=== PATIENT | female | born 2000 | race Caucasian/White ===

== ENCOUNTER 2020-03-30 23:08 | Emergency (ER) | payer MEDICAID, OTHER ==
[2020-03-30] MEDS ORDERED: LIDOCAINE 1% MPF 5 ML VIAL ONE ×2 (23:43)
--- NOTE | 2020-03-30 23:54 | ER ---
Nurse's Notes [facility] Name: Rand Clifton Age: 19 yrs Sex: Female : 2000 Arrival Date: 03/30/2020 Time: 23:11 Bed 14 Private MD: Diagnosis: Laceration without foreign body of right index finger without damage to nail Presentation: 03/30 23:19 Chief complaint: Patient states: cut her right index finger with sample box maker yesterday iw morning around 5 or 6 am. Coronavirus screen: At this time, the client does not indicate any symptoms associated with coronavirus-19. Ebola Screen: Patient negative for fever greater than or equal to 101.5 degrees Fahrenheit, and additional compatible Ebola Virus Disease symptoms Patient denies exposure to infectious person. Patient denies travel to an Ebola-affected area in the 21 days before illness onset. No symptoms or risks identified at this time. Initial Sepsis Screen: Does the patient meet any 2 criteria? No. Patient's initial sepsis screen is negative. Does the patient have a suspected source of infection? No. Patient's initial sepsis screen is negative. Risk Assessment: Do you want to hurt yourself or someone else? Patient reports no desire to harm self or others. Onset of symptoms was March 29, 2020. 23:19 Method Of Arrival: Ambulatory iw 23:19 Acuity: SERGEI 4 iw Historical: - Allergies: 23:22 No Known Allergies; iw - PMHx: 23:22 Bipolar disorder; Depression; Anxiety; Schizophrenia; iw - PSHx: 23:22 ; iw - Immunization history:: Adult Immunizations Last tetanus immunization: < 5 years ago. - Social history:: Smoking status: Patient reports the use of cigarette tobacco products, denies chronic smoking, but will smoke occasionally, Smoking status: . Screenin:21 Abuse screen: Denies threats or abuse. Denies injuries from another. Nutritional mg2 screening: No deficits noted. Tuberculosis screening: No symptoms or risk factors identified. Fall Risk None identified. Assessment: 23:19 General: Appears in no apparent distress. comfortable, Behavior is calm, cooperative. mg2 Pain: Complains of pain in right hand. Neuro: Level of Consciousness is awake, alert, obeys commands, Oriented to person, place, time, situation. Cardiovascular: Capillary refill < 3 seconds Patient's skin is warm and dry. Respiratory: Airway is patent Respiratory effort is even, unlabored, Respiratory pattern is regular, symmetrical. GI: No signs and/or symptoms were reported involving the gastrointestinal system. : No signs and/or symptoms were reported regarding the genitourinary system. EENT: No deficits noted. Derm: Wound noted right index finger Wound is open, measures approx 1.5 inch long. Musculoskeletal: Circulation, motion, and sensation intact. Capillary refill < 3 seconds. Vital Signs: 23:19 Temp 99(O); mg2 23:19 BP 122 / 80; Pulse 97; Resp 16; Pulse Ox 100% on R/A; Weight 81.65 kg; Height 5 ft. 1 iw in. (154.94 cm); Pain 8/10; 03/31 00:04 BP 112 / 80; Pulse 89; Resp 18; Temp 98; Pulse Ox 100% on R/A; mg2 03/30 23:19 Body Mass Index 34.01 (81.65 kg, 154.94 cm) iw ED Course: 03/30 23:11 Patient arrived in ED. am2 23:19 Juan Murrieta, RN is Primary Nurse. mg2 23:20 Triage completed. iw 23:21 Patient has correct armband on for positive identification. mg2 23:26 Jamal Fung MD is Attending Physician. snw 23:26 Glenna Prescott FNP-C is PHCP. snw 03/31 00:03 Assist provider with laceration repair on palmar aspect of middle phalanx of right mg2 index finger that was 2.5 cm. or less using sutures. Set up tray. Performed by Glenna VANEGAS Dressed with 4X4s, Neosporin, Patient tolerated well. 2 stitches smade under local anesthesia. Patient did not have IV access during this emergency room visit. 00:05 Arm band placed on. mg2 Administered Medications: 03/30 23:45 Drug: Lidocaine (1 %) 1 amp {Note: administered by the provider.} Volume: 5 ml; Route: mg2 Infiltration; 03/31 00:03 Drug: Doxycycline 100 mg Route: PO; mg2 00:03 Follow up: Response: No adverse reaction; Medication administered at discharge. mg2 Outcome: 03/30 23:54 Discharge ordered by . snw 03/31 00:04 Discharged to home ambulatory. mg2 Condition: stable Discharge instructions given to patient, Instructed on discharge instructions, follow up and referral plans. medication usage, wound care, Demonstrated understanding of instructions, follow-up care, medications, wound care, Prescriptions given X 2. 00:05 Patient left the ED. mg2 Signatures: Glenan Prescott, CRAFT WORKER-C CRAFT WORKER-Csnw Taylor Smith, RN RN Valery Lorenz am Juan Murrieta RN RN mg2
--- NOTE | 2020-03-30 23:54 | EDPHYS ---
Physician Documentation [facility] Name: Rand Clifton Age: 19 yrs Sex: Female : 2000 Arrival Date: 03/30/2020 Time: 23:11 Bed 14 Private MD: ED Physician Jamal Fung HPI: 03/30 23:20 This 19 yrs old Female presents to ER via Unassigned with complaints of snw Finger Injury. 23:20 The patient or guardian reports a laceration, dirty, 3 cm(s), laceration occurred more snw than 12 hours ago. The complaints affect the palmar aspect of middle phalanx of right index finger. 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 Onset: The symptoms/episode began/occurred yesterday. Modifying factors: The symptoms are alleviated by nothing. Severity of symptoms: At their worst the symptoms were moderate. The patient has experienced similar episodes in the past. The patient has not recently seen a physician. denies intentional injury, tetanus vaccine up to date. Historical: - Allergies: 23:22 No Known Allergies; iw - PMHx: 23:22 Bipolar disorder; Depression; Anxiety; Schizophrenia; iw - PSHx: 23:22 ; iw - Immunization history:: Adult Immunizations Last tetanus immunization: < 5 years ago. - Social history:: Smoking status: Patient reports the use of cigarette tobacco products, denies chronic smoking, but will smoke occasionally, Smoking status: . ROS: 23:17 Constitutional: Negative for fever, chills, and weight loss, Eyes: Negative for injury, snw pain, redness, and discharge, ENT: Negative for injury, pain, and discharge, Neck: Negative for injury, pain, and swelling, Cardiovascular: Negative for chest pain, palpitations, and edema, Respiratory: Negative for shortness of breath, cough, wheezing, and pleuritic chest pain, Abdomen/GI: Negative for abdominal pain, nausea, vomiting, diarrhea, and constipation, Back: Negative for injury and pain, : Negative for injury, bleeding, discharge, and swelling, MS/Extremity: Negative for injury and deformity, Neuro: Negative for headache, weakness, numbness, tingling, and seizure, Psych: Negative for depression, anxiety, suicide ideation, homicidal ideation, and hallucinations. 23:17 Skin: Positive for laceration(s), of the right index finger . Exam: 23:17 Constitutional: This is a well developed, well nourished patient who is awake, alert, snw and in no acute distress. Head/Face: Normocephalic, atraumatic. Eyes: Pupils equal round and reactive to light, extra-ocular motions intact. Lids and lashes normal. Conjunctiva and sclera are non-icteric and not injected. Cornea within normal limits. Periorbital areas with no swelling, redness, or edema. ENT: Nares patent. No nasal discharge, no septal abnormalities noted. Tympanic membranes are normal and external auditory canals are clear. Oropharynx with no redness, swelling, or masses, exudates, or evidence of obstruction, uvula midline. Mucous membranes moist. Neck: Trachea midline, no thyromegaly or masses palpated, and no cervical lymphadenopathy. Supple, full range of motion without nuchal rigidity, or vertebral point tenderness. No Meningismus. Chest/axilla: Normal chest wall appearance and motion. Nontender with no deformity. No lesions are appreciated. Cardiovascular: Regular rate and rhythm with a normal S1 and S2. No gallops, murmurs, or rubs. Normal PMI, no JVD. No pulse deficits. Respiratory: Lungs have equal breath sounds bilaterally, clear to auscultation and percussion. No rales, rhonchi or wheezes noted. No increased work of breathing, no retractions or nasal flaring. Abdomen/GI: Soft, non-tender, with normal bowel sounds. No distension or tympany. No guarding or rebound. No evidence of tenderness throughout. Back: No spinal tenderness. No costovertebral tenderness. Full range of motion. MS/ Extremity: Pulses equal, no cyanosis. Neurovascular intact. Full, normal range of motion. Neuro: Awake and alert, GCS 15, oriented to person, place, time, and situation. Cranial nerves II-XII grossly intact. Motor strength 5/5 in all extremities. Sensory grossly intact. Cerebellar exam normal. Normal gait. Psych: Awake, alert, with orientation to person, place and time. Behavior, mood, and affect are within normal limits. 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 Vital Signs: 23:19 Temp 99(O); mg2 23:19 BP 122 / 80; Pulse 97; Resp 16; Pulse Ox 100% on R/A; Weight 81.65 kg; Height 5 ft. 1 iw in. (154.94 cm); Pain 8/10; 03/31 00:04 BP 112 / 80; Pulse 89; Resp 18; Temp 98; Pulse Ox 100% on R/A; mg2 03/30 23:19 Body Mass Index 34.01 (81.65 kg, 154.94 cm) iw Laceration: 03/30 23:22 Wound Repair of 4cm ( 1.6in ) subcutaneous laceration to palmar aspect of middle snw phalanx of right index finger. Linear shaped.. Moderate contamination.. extended time prior to coming in for repair. Distal neuro/vascular/tendon intact. Anesthesia: Local anesthetic administered with 5 mls of 1% lidocaine. Wound prep: Extensive cleansing with betadine with hibiclenz by nurse. Skin closed with 2 4-0 Prolene using simple sutures and sterile technique. Dressed with non-adherent dressing. Patient tolerated well. MDM: 23:23 Data reviewed: vital signs, nurses notes. Data interpreted: Pulse oximetry: on room air snw is 100 %. Interpretation: normal. Counseling: I had a detailed discussion with the patient and/or guardian regarding: the historical points, exam findings, and any diagnostic results supporting the discharge/admit diagnosis, the need for outpatient follow up, to return to the emergency department if symptoms worsen or persist or if there are any questions or concerns that arise at home. Special discussion: Based on the history and exam findings, there is no indication for further emergent testing or inpatient evaluation. I discussed with the patient/guardian the need to see the primary care provider for further evaluation of the symptoms. 23:26 Patient medically screened. snw Administered Medications: 23:45 Drug: Lidocaine (1 %) 1 amp {Note: administered by the provider.} Volume: 5 ml; Route: mg2 Infiltration; 03/31 00:03 Drug: Doxycycline 100 mg Route: PO; mg2 00:03 Follow up: Response: No adverse reaction; Medication administered at discharge. mg2 Disposition: 06:44 Co-signature as Attending Physician, Jamal Fung MD. mh7 Disposition: 03/30/20 23:54 Discharged to Home. Impression: Laceration without foreign body of right index finger without damage to nail. - Condition is Stable. - Discharge Instructions: Delayed Wound Closure, Laceration Care, Adult, Stitches, [place], or Adhesive Wound Closure, Wound Infection, Wound Care. - Prescriptions for Mobic 7.5 mg Oral Tablet - take 1 tablet by ORAL route once daily take with food; 20 tablet. Doxycycline Hyclate 100 mg Oral Tablet - take 1 tablet by ORAL route every 12 hours; 20 tablet. - Medication Reconciliation Form, Thank You Letter, Antibiotic Education, Prescription Opioid Use form. - Follow up: Emergency Department; When: As needed; Reason: Worsening of condition. Follow up: Private Physician; When: 7 - 10 days; Reason: Recheck today's complaints, Continuance of care, Staple/Suture removal, Re-evaluation by your physician. Signatures: Glenna Prescott, TITLE INVESTIGATOR-C TITLE INVESTIGATOR-Csnw Taylor Smith RN RN iw Juan Murrieta RN RN mg2 Jamal Fung MD MD 7 Corrections: (The following items were deleted from the chart) 03/30 23:53 23:22 Wound Repair of 4cm ( 1.6in ) subcutaneous laceration to palmar aspect of middle snw phalanx of right index finger. Linear shaped.. Moderate contamination.. extended time prior to coming in for repair. Distal neuro/vascular/tendon intact. Anesthesia: Local anesthetic administered with 5 mls of 1% lidocaine. Wound prep: Extensive cleansing with betadine with hibiclenz by nurse. Skin closed with 3 4-0 Prolene using simple sutures and sterile technique. Dressed with non-adherent dressing. Patient tolerated well. [facility] 03/31 00:05 03/30 23:54 03/30/2020 23:54 Discharged to Home. Impression: Laceration without foreign mg2 body of right index finger without damage to nail. Condition is Stable. Discharge Instructions: Delayed Wound Closure, Laceration Care, Adult, Stitches, [place], or Adhesive Wound Closure, Wound Infection, Wound Care. Prescriptions for Mobic 7.5 mg Oral Tablet - take 1 tablet by ORAL route once daily take with food; 20 tablet, Doxycycline Hyclate 100 mg Oral Tablet - take 1 tablet by ORAL route every 12 hours; 20 tablet. and Forms are Medication Reconciliation Form, Thank You Letter, Antibiotic Education, Prescription Opioid Use. Follow up: Emergency Department; When: As needed; Reason: Worsening of condition. Follow up: Private Physician; When: 7 - 10 days; Reason: Recheck today's complaints, Continuance of care, Staple/Suture removal, Re-evaluation by your physician. snw
[2020-03-31] MEDS ORDERED: DOXYCYCLINE 100 MG CAP PO ONE (00:10)
[2020-04-04 17:19] VITALS: O2SAT 100
[2020-04-04 17:20] VITALS: BP 112/80; TEMP 98
== END 2020-03-31 00:05 | disposition home or self-care (01) ==
LOC: ER 23:08
PROC: 0JQJ0ZZ Repair Right Hand Subcutaneous Tissue and Fascia, Open Approach (ICD-10-PCS; principal; 2020-03-31)
DX: S61.210A Laceration without foreign body of right index finger without damage to nail, initial encounter (principal); W26.0XXA Contact with knife, initial encounter; Y93.89 Activity, other specified; Y92.89 Other specified places as the place of occurrence of the external cause; Y99.8 Other external cause status; F17.210 Nicotine dependence, cigarettes, uncomplicated
CPT/HCPCS: 99283

== ENCOUNTER 2020-07-18 01:50 | Emergency (ER) | payer OTHER ==
--- OUTSIDE RECORDS SUMMARY | 2020-07-18 01:52 | XMS REPORT | Continuity of Care Document ---
:2000 Author Organization [email or web address] Care Team Providers Name Role Phone [email or web address] Unavailable Un available Problems Problem Status Onset Classification Date Comments Sourc e Date Reported Urinary tract 01/03/2017 Ka ty infection, 7 Hospital site not specified Threatened 01/03/2017 Glenda 7 Hospital Other 01/03/2017 Glenda placental 7 Hospital disorders, first trimester POSSIBLE Active Glenda ECTOPIC 7 [facility] Suicidal Resolved Problem 01/03/2017 Glenda thoughts Hospital (finding) Medications Medication Details Route Status Patient Ordering Order Source Instructions Provider Date Nitrofurantoin 100 mg = 1 Active Maddy y 100 MG Oral cap, PO, 017 [facility] Capsule BID, X 7 [Macrobid] day, # 14 cap, 0 Refill(s) Sodium Chloride 1,000 mL, Inactive Ka ty 0.154 MEQ/ML 1,000 017 [facility] Injectable ml/hr, Solution Infuse Over: 1 hr, Route: IV, 1,000, Drug form: INJ, ONCE, Priority: STAT, kg, Start date: 12/31/16 15:40:00 CDT, Duration: 1 doses or times, Stop date: 12/31/16 15:40:00 CDT Allergies, Adverse Reactions, Alerts No Known Medication Allergies Immunizations No Data Provided for This Section Results Order Name Results Value Reference Date Interpretation Comments Brittany rce Range URINE AND UA RBC 0-2 /HPF 0 - 2 12/31 Glenda STOOL /2016 [facility] URINE AND UA WBC 6-10 /HPF 0 - 5 12/31 Glenda STOOL [facility] URINE AND UA Sq Epi Few /LPF Few /LPF 12/31 Glenda STOOL [facility] URINE AND UA Leuk Est Trace Negative 12/31 [facility] STOOL *ABN* /2016 [facility] (12/31/16 4:59 PM) URINE AND UA Nitrite Negative Negative 12/31 [facility] (12/31/16 4:59 PM) Hospit al URINE AND UA Bacteria Few /HPF None Seen 12/31 Glenda STOOL /HPF /2016 Hospital URINE AND UA Ketones Negative Negative 12/31 Glenda STOOL *NA* /2016 [facility] (12/31/16 4:59 PM) URINE AND UA Glucose Negative Negative 12/31 [facility] STOOL (12/31/16 4:59 PM) /2016 Hospit al URINE AND UA Protein Negative Negative 12/31 [facility] STOOL (12/31/16 4:59 PM) /2016 Hospit al URINE AND UA pH 7.0 5.0 - 8.0 12/31 [facility] STOOL /2016 Hospital URINE AND UA Spec Grav 1.020 <=1.030 12/31 Gl[facility] STOOL /2016 Hospital URINE AND UA Turbidity Clear Clear 12/31 [facility] (12/31/16 4:59 PM) Hospit al URINE AND UA 0.2 0.1 - 1.0 12/31 Glenda STOOL Urobilinogen /2016 [facility] URINE AND UA Blood Trace Negative 12/31 Glenda STOOL *ABN* /2016 [facility] (12/31/16 4:59 PM) URINE AND UA Bili Negative Negative 12/31 Glenda STOOL *NA* /2016 [facility] (12/31/16 4:59 PM) URINE AND UA Color Yellow Yellow 12/31 Glenda STOOL *NA* /2016 [facility] (12/31/16 4:59 PM) BLOOD BANK ABO/Rh A POS 12/31 Glenda RESULTS [facility] ELECTROLYTE AGAP 12.9 10.0 - 12/31 Glenda S 20.0 [facility] ELECTROLYTE B/C Ratio 14 6 - 25 12/31 Glenda S /2016 [facility] ELECTROLYTE A/G Ratio 0.6 0.7 - 1.6 12/31 Glenda S /2016 [facility] ELECTROLYTE Globulin 4.5 2.7 - 4.2 12/31 Glenda S [facility] ELECTROLYTE eGFR 127 12/31 Result Glenda S Comment: The Hospital eGFR is calculated using the CKD-EPI formula. In most young, healthy individuals the eGFR will be >90 mL/min/1.73m2 . The eGFR declines with age. An eGFR of 60-89 may be normal in some populations, particularly the elderly, for whom the CKD-EPI formula has not been extensively validated. Use of the eGFR is not recommended in the following populations:< br/>
Juana viduals with unstable creatinine concentration s, including patients and those with serious co-morbid conditions.<b r/>
Patie nts with extremes in muscle mass or diet.

The data above are obtained from the National Kidney Disease Education Program (NKDEP) which additionally recommends that when the eGFR is used in patients with extremes of body mass index for purposes of drug dosing, the eGFR should be multiplied by the estimated BMI. ELECTROLYTE Calcium Lvl 8.9 8.5 - 10.5 12/31 Ka ty [facility] ELECTROLYTE Albumin Lvl 2.8 3.5 - 5.0 12/31 Maddy y [facility] ELECTROLYTE CO2 28 24 - 32 12/31 Glenda [facility] ELECTROLYTE Total Protein 7.3 6.4 - 8.4 12/31 K aty [facility] ELECTROLYTE ALT 37 0 - 65 12/31 [facility] ELECTROLYTE AST 25 0 - 37 12/31 [facility] ELECTROLYTE Alk Phos 78 39 - 136 12/31 [facility] ELECTROLYTE Bili Total 0.2 0.2 - 1.3 12/31 Glenda [facility] ELECTROLYTE Glucose Lvl 83 70 - 99 12/31 Glenda [facility] ELECTROLYTE Creatinine 0.70 0.50 - 12/31 Glenda S Lvl 1.40 Hospital ELECTROLYTE Sodium Lvl 142 135 - 145 12/31 Glenda [facility] ELECTROLYTE Potassium Lvl 3.9 3.5 - 5.1 12/31 K aty [facility] ELECTROLYTE Chloride Lvl 105 95 - 109 12/31 Maddy y [facility] ELECTROLYTE BUN 10 7 - 22 12/31 Glenda [facility] ENDOCRINOLO S Preg Positive Negative 12/31 Glenda GY *NA* /2016 [facility] (12/31/16 3:52 PM) ENDOCRINOLO S Preg Positive Negative 12/31 Glenda GY *NA* /2016 [facility] (12/31/16 3:52 PM) HEMATOLOGY Platelet 468 133 - 450 12/31 [facility] HEMATOLOGY MPV 7.3 7.4 - 10.4 12/31 [facility] HEMATOLOGY MCHC 32.3 32.0 - 12/31 [facility] 36.0 Hospital HEMATOLOGY RDW 15.9 11.5 - 12/31 Glenda 14.5 [facility] HEMATOLOGY Hgb 12.9 12.0 - 12/31 Glenda 16.0 [facility] HEMATOLOGY WBC 14.5 3.7 - 10.4 12/31 [facility] HEMATOLOGY RBC 5.04 4.20 - 12/31 Glenda 5.40 [facility] HEMATOLOGY MCV 79.5 80.0 - 12/31 Glenda 98.0 [facility] HEMATOLOGY MCH 25.6 27.0 - 12/31 Glenda 31.0 [facility] HEMATOLOGY Hct 40.0 36.0 - 12/31 Glenda 48.0 [facility] HEMATOLOGY Basophils 1.3 0.0 - 1.0 12/31 [facility] HEMATOLOGY Monocytes 4.9 2.0 - 12.0 12/31 [facility] HEMATOLOGY Eosinophils 0.9 0.0 - 4.0 12/31 [facility] HEMATOLOGY Lymphocytes # 3.3 1.0 - 5.5 12/31 [facility] HEMATOLOGY Segs-Bands # 10.2 1.5 - 8.1 12/31 [facility] HEMATOLOGY Eosinophils # 0.1 0.0 - 0.5 12/31 [facility] HEMATOLOGY Monocytes # 0.7 0.0 - 0.8 12/31 [facility] HEMATOLOGY Basophils # 0.2 0.0 - 0.2 12/31 [facility] HEMATOLOGY Lymphocytes 22.5 20.0 - 12/31 Glenda 40.0 [facility] HEMATOLOGY Segs 70.4 45.0 - 12/31 [facility] 75.0 Hospital Pathology Reports No Data Provided for This Section Diagnostic Reports Report Value Date Source < 14 weeks PROCEDURE: 12/31/2016 [facility] pital single gestation US Transabdominal and transvagi nal pelvic ultrasound. Early ultrasound. INDICATION: Pelvic cramping and vaginal spotting today. Threatened miscarriage. Estimated gestational age by last menstrual gisela od is 7 weeks 5 days COMPARISON: None. TRANSABDOMINAL: Uterus: Uterus measures 10. 4 cm in length and appears anteverted. Intrauterine gestational sac identified. Estimated gestational age by mean sac diameter is 5 weeks 5 days. Darwin-rump length is not nadine ntified. Yolk sac not seen o n transabdominal study. Cervix measures 3.4 cm in length. Ovaries \T\ Adnexa: Ovaries are not visualized on transabdominal study. No free fluid. TRANSVAGINAL: Transvaginal study performed to attempt better characterization of the uterus and ovaries. Uterus: Uterus is anteverte d. Cervix appears unremarkable measuring at least 3.4 cm in length. Uterus measures 9.1 cm in length. Intrauterine gestational sac identified and contains a yolk sac. The yol k sac measures 2 -- 3 mm in diameter. Estimated gestational age by mean sac diameter is 5 weeks 4 days. A pole was not identified. Hypoechoic fluid is identifi ed within the subchorionic superior uterine cavity measuring 11 mm x 4 mm x 3 mm. This is compatible subchorionic hemorrhage. Ovaries \T\ Adnexa: Right o vary measures 3.7 cm x 2.9 cm x 2.4 cm. Multiple small right ovarian follicles. Right ovarian corpus luteum measures 18 mm x 15 mm x 15 mm. Doppler flow is present in the rig ht ovarian tissue. Left ovar y is not visualized. Small volume hypoechoic free fluid in the cul-de-sac. IMPRESSION: 1. Intrauterine gestational sac with estimated gestational age of 5 weeks 4 days. 2. Subchorionic hemorrhage measures up to 11 mm. 3. Right ovarian corpus luteum measures 18 mm. 4. Nonvisualization left ovary. 5. Small volume free fluid in the pelvic ultraso und. SL: [id number]-M Consultation Notes No Data Provided for This Section Discharge Summaries No Data Provided for This Section History and Physicals No Data Provided for This Section Vital Signs Vital Sign Value Date Comments Source Respitory Rate 18 12/31/2016 [facility] [place] Heart Rate 91 12/31/2016 [facility] l Systolic (mm Hg) 114 12/31/2016 [facility] pital Diastolic (mm Hg) 64 12/31/2016 [facility] spital Temperature Oral (F) 98.6 F 12/31/[address] [facility] Systolic (mm Hg) 109 12/31/2016 [facility] pital Diastolic (mm Hg) 61 12/31/2016 [facility] Heart Rate 98 [facility] 16 12/31/[facility] Weight 79.545 12/31/2016 [facility] Height 154.94 cm 12/31/2016 [facility] BMI Calculated 33.13 12/31/2016 [facility] Temperature Oral (F) 98 F 12/31/[address] [facility] Systolic (mm Hg) 121 12/31/2016 [facility] Diastolic (mm Hg) 81 12/31/2016 [facility] spital Respitory Rate 20 12/31/2016 [facility] Heart Rate 98 12/31/2016 [facility] Encounters Location Location Encounter Encounter Reason Attending ADM DC Stat us Source Details Type Number For Provider Date Date [facility] [id number] [place] 12/31 01/01 [facility] Sally [facility] Procedures Procedure Code Date Perfomer Comments Source section [id number] [facility] Assessment and Plan No Data Provided for This Section Plan of Care No Data Provided for This Section Social History Social History Date Source Social History TypeResponse 12/31/2016 [facility] Substance Abuse Use: None. Alcohol Never Smoking Status Never smoker; Exposure to Tobacco Smoke None; Cigarette Smoking Last 365 Days No; Reg Smoking Cessation Counseling No Family History No Data Provided for This Section Advance Directives No Data Provided for This Section Functional Status No Data Provided for This Section
[2020-07-18] MEDS ORDERED: HYDROCODONE/APAP 5/325 MG TAB ONE (02:40)
--- NOTE | 2020-07-18 02:40 | ER ---
Nurse's Notes [facility] Name: Rand Clifton Age: 19 yrs Sex: Female : 2000 Arrival Date: 07/18/2020 Time: 01:52 Bed 17 Private MD: Diagnosis: Left Breast Swelling;Left Breast Pain Presentation: 07/18 02:16 Chief complaint: Patient states: i have a lump on my left breast. it popped up Saturday ll2 but started very small and has since gotten much bigger and painful. Coronavirus screen: Client denies travel out of the [place] in the last 14 days. At this time, the client does not indicate any symptoms associated with coronavirus-19. Ebola Screen: No symptoms or risks identified at this time. Initial Sepsis Screen: Does the patient meet any 2 criteria? No. Patient's initial sepsis screen is negative. Does the patient have a suspected source of infection? No. Patient's initial sepsis screen is negative. Risk Assessment: Do you want to hurt yourself or someone else? Patient reports no desire to harm self or others. Onset of symptoms was July 15, 2020. 02:16 Method Of Arrival: Ambulatory ll2 02:16 Acuity: SERGEI 4 ll2 Triage Assessment: 02:21 General: Appears in no apparent distress. Behavior is calm, cooperative, appropriate ll2 for age. Pain: Complains of pain in left breast. 02:22 EENT: No signs and/or symptoms were reported regarding the EENT system. Neuro: Level of ll2 Consciousness is awake, alert, obeys commands, Oriented to person, place, time, situation. Cardiovascular: Patient's skin is warm and dry. Respiratory: Airway is patent Respiratory effort is even, unlabored, Respiratory pattern is regular, symmetrical. GI: No signs and/or symptoms were reported involving the gastrointestinal system. : No signs and/or symptoms were reported regarding the genitourinary system. Derm: elevated bump approximately 1 inch in diameter to left breast. Musculoskeletal: Circulation, motion, and sensation intact. Range of motion: intact in all extremities. 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 - Social history:: Smoking status: Reported history of juuling and/or vaping. Screenin:23 Abuse screen: Denies threats or abuse. Nutritional screening: No deficits noted. ll2 Tuberculosis screening: No symptoms or risk factors identified. Fall Risk None identified. Assessment: 02:22 Reassessment: see triage assessment. ll2 02:24 Reassessment: ERD to bedside discussing options on staying till U/S is available or ll2 going to different hospital. 02:29 Reassessment: pt decided to go to different facility. ERD notified. ll2 Vital Signs: 02:16 BP 118 / 79; Pulse 100; Resp 18; Temp 98.1; Pulse Ox 100% on R/A; ll2 ED Course: 01:52 Patient arrived in ED. am2 01:55 Sharda Dc RN is Primary Nurse. ll2 02:00 Jamal Fung MD is Attending Physician. [facility] 02:18 Triage completed. ll2 02:21 Arm band placed on right wrist. ll2 02:23 Patient has correct armband on for positive identification. Placed in gown. Bed in low ll2 position. Call light in reach. Side rails up X 1. Pulse ox on. NIBP on. Warm blanket given. 02:38 Luis Enrique De Leon MD is Referral Physician. 7 Administered Medications: 02:28 Drug: [place] 5 mg-325 mg 1 tabs Route: PO; ll2 Outcome: 02:41 Patient left the ED. 2 Signatures: Valery Lorenz am2 Sharda Dc RN RN 2 Jamal Fung MD MD 7
--- NOTE | 2020-07-18 02:40 | EDPHYS ---
Physician Documentation [facility] Name: Rand Clifton Age: 19 yrs Sex: Female : 2000 Arrival Date: 07/18/2020 Time: 01:52 Bed 17 Private MD: ED Physician Jamal Fung HPI: 07/18 02:32 This 19 yrs old Female presents to ER via Ambulatory with complaints of mh7 Breast Problem - left/swelling and pain. 02:32 the patient presents with a swollen area of the left breast. Description: erythematous, mh7 swollen. Onset: The symptoms/episode began/occurred 3 day(s) ago. Possible cause(s): unknown. Associated signs and symptoms: Pertinent positives: erythema, swelling, Pertinent negatives: discharge, drainage, foreign body sensation, fever, headache, nausea, shortness of breath, vomiting. Modifying factors: the symptoms are alleviated by nothing, the symptoms are aggravated by nothing. Severity of symptoms: At their worst the symptoms were moderate, yesterday, in the emergency department the symptoms are unchanged. 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 - Social history:: Smoking status: Reported history of juuling and/or vaping. ROS: 02:32 Constitutional: Negative for fever, chills, and weight loss, Eyes: Negative for injury, mh7 pain, redness, and discharge, ENT: Negative for injury, pain, and discharge, Neck: Negative for injury, pain, and swelling, Cardiovascular: Negative for chest pain, palpitations, and edema, Respiratory: Negative for shortness of breath, cough, wheezing, and pleuritic chest pain, Abdomen/GI: Negative for abdominal pain, nausea, vomiting, diarrhea, and constipation, Back: Negative for injury and pain, : Negative for injury, bleeding, discharge, and swelling, MS/Extremity: Negative for injury and deformity, Neuro: Negative for headache, weakness, numbness, tingling, and seizure, Psych: Negative for depression, anxiety, suicide ideation, homicidal ideation, and hallucinations, Allergy/Immunology: Negative for hives, rash, and allergies, Endocrine: Negative for neck swelling, polydipsia, polyuria, polyphagia, and marked weight changes, Hematologic/Lymphatic: Negative for swollen nodes, abnormal bleeding, and unusual bruising. Exam: 02:32 Constitutional: This is a well developed, well nourished patient who is awake, alert, mh7 and in no acute distress. Head/Face: Normocephalic, atraumatic. Neck: Trachea midline, no thyromegaly or masses palpated, and no cervical lymphadenopathy. Supple, full range of motion without nuchal rigidity, or vertebral point tenderness. No Meningismus. 02:32 Cardiovascular: Regular rate and rhythm with a normal S1 and S2. No gallops, murmurs, or rubs. Normal PMI, no JVD. No pulse deficits. Respiratory: Lungs have equal breath sounds bilaterally, clear to auscultation and percussion. No rales, rhonchi or wheezes noted. No increased work of breathing, no retractions or nasal flaring. Abdomen/GI: Soft, non-tender, with normal bowel sounds. No distension or tympany. No guarding or rebound. No evidence of tenderness throughout. Back: No spinal tenderness. No costovertebral tenderness. Full range of motion. 02:32 MS/ Extremity: Pulses equal, no cyanosis. Neurovascular intact. Full, normal range of motion. Neuro: Awake and alert, GCS 15, oriented to person, place, time, and situation. Cranial nerves II-XII grossly intact. Motor strength 5/5 in all extremities. Sensory grossly intact. Cerebellar exam normal. Normal gait. Psych: Awake, alert, with orientation to person, place and time. Behavior, mood, and affect are within normal limits. 02:32 Chest/axilla: Breasts: cellulitis, that is mild of the left breast, mass(es), that is small, in the left breast, nipple discharge, is not appreciated, rash, is not appreciated, swelling, that is mild of the right breast, tenderness, that is moderate, of the left breast, Lymph nodes: lymphadenopathy is not appreciated. 02:32 Skin: cellulitis, that is mild, well demarcated, on the left breast, induration, that is mild is noted, located on the left breast. Vital Signs: 02:16 BP 118 / 79; Pulse 100; Resp 18; Temp 98.1; Pulse Ox 100% on R/A; ll2 MDM: 02:32 Differential diagnosis: abscess, allergic reaction, cellulitis, insect bite. Data [facility] reviewed: vital signs, nurses notes. 02:39 Patient medically screened. 7 02:41 Data interpreted: Pulse oximetry: on room air is 100 %. Interpretation: normal. Refusal [facility] of service: The patient/guardian displays adequate decision making capability and despite a detailed discussion of alternatives, benefits, risks, and consequences refuses: all lab tests, Ultrasound, not available for several hours. Administered Medications: 02:28 Drug: [place] 5 mg-325 mg 1 tabs Route: PO; ll2 Disposition: 07/18/20 02:39 Patient has left against medical advice. Impression: Left Breast Swelling, Left Breast Pain. - Patients states they are going to Home. - Condition is Stable. - Discharge Instructions: Breast Self-Awareness, [id number], Breast Tenderness. Follow up: Private Physician; When: 24 Hours. Follow up: Luis Enrique De Leon MD; When: Today; Reason: Worsening of condition, Recheck today's complaints. - Problem is new. - Symptoms are unchanged. Signatures: Sharda Dc RN RN 2 Jamal Fung MD MD [facility] Corrections: (The following items were deleted from the chart) 02:39 02:39 07/18/2020 02:39 Patients has left against medical advice. Impression: Left mh7 Breast Swelling. Patient states they are going to Home. Condition is Stable. Follow up: Private Physician; When: 24 Hours. Follow up: Luis Enrique De Leon; When: Today; Reason: Worsening of condition, Recheck today's complaints. Problem is new. Symptoms are unchanged. 7 02:41 02:39 07/18/2020 02:39 Patients has left against medical advice. Impression: Left ll2 Breast Swelling; Left Breast Pain. Patient states they are going to Home. Condition is Stable. Follow up: Private Physician; When: 24 Hours. Follow up: Luis Enrique De Leon; When: Today; Reason: Worsening of condition, Recheck today's complaints. Problem is new. Symptoms are unchanged. mh7
== END 2020-07-18 02:41 | disposition left against medical advice (07) ==
LOC: ER 01:50
DX: N63.0 Unspecified lump in unspecified breast (principal); F20.9 Schizophrenia, unspecified
CPT/HCPCS: 99283